=== PATIENT | female | born 1980 | race Caucasian/White ===

== ENCOUNTER 2024-04-19 16:52 | Day surgery (SDC) | payer OTHER, SELFPAY ==
[2024-04-19] VITALS (14 sets, daily range): BP systolic 89–116; BP diastolic 53–75; PULSE 89–114; RESP 16–18; TEMP 35.8–37.4; O2SAT 98–100; BMI 27.0
--- NOTE | 2024-04-19 17:06 | US_ITS ---
STUDY: FIRST TRIMESTER OBSTETRICAL ULTRASOUND REASON FOR EXAM: Female, 43 years old vag bleeding 1st trimester ?? miscarriage LMP: TECHNIQUE: Transvaginal TECHNICAL QUALITY: Adequate. PRIOR ULTRASOUND: None. FINDINGS: There is no evidence for intrauterine gestational sac The estimated gestation age (EGA) by LMP is 12 weeks, 0 days. The estimated date of delivery (MARCY) by LMP is November 01, 2024. The uterus measures 10.9 x 7.5 x 5.5. There is no demonstrated uterine fibroid. The cervix is closed. The endometrial lining is 2.4 cm in thickness heterogeneous appearance and vascular which may be consistent with retained products of conception. Normal right ovary is not visualized. There is no adnexal mass The left ovary measures 3.5 x 2.7 x 2 cm. There is a cyst measuring 2.3 x 1.8 x 1.67 years. There is no visualized left adnexal mass or complex lesion. There is no fluid in the cul de sac. US/Transvaginal w/Preg US IMPRESSION: Findings which may be consistent with incomplete and retained products of conception. Small left ovarian cyst possibly corpus luteum. No definitive evidence for ectopic Electronically Signed: Daniel Valiente MD at 18:34 EDT ,
--- NOTE | 2024-04-19 17:08 | EDS_ITS ---
HPI HPI - Female History of Present Illness Chief Complaint: Vag Bld, Preg Informant: patient and spouse/S.O. Pain Pain: Positive for Pelvic Pain Quality: Positive for Cramping Current Severity: Mild Maximum Severity: Mild Bleeding Issue: Positive for Vaginal bleeding and Passing clots Onset: Today and Yesterday Timing: Intermittent Current Severity: Similar to period Maximum Severity: Similar to period Associated Symptoms Associated Symptoms: Negative for Dysuria, Frequency or Urgency Test: Positive Sexually: Positive for Active Control: No control P: 8 Ab: 5 Narrative Narrative: 43-year-old female believes she has been 13 times with 8 live children and possibly 5 or so miscarriages. So G5 13 P8 AB 5. States she was most recently 12 weeks . Think she had a miscarriage yesterday. With bleeding clots and continued to have bleeding clots today. Since she typically with her other miscarriages she has not had significant bleeding like this. She denies any fever. No dysuria. She is on no medications. She has no past medical or surgical history. She has had no recent hospitalization. She has never seen either [facility] to come to this hospital or been evaluated by them in the past. She had no care for this . Prior similar symptoms: Yes Recent Illness/Hospitalization: No PFSH PFSH Medical History no medical history no medical history Home Medications ?Medication ?Instructions ?Recorded ?Last Taken ?Type NK 04/19/24 Unknown History Allergy/AdvReac Type Severity Reaction Status Date / Time No Known Allergies Allergy Verified 04/19/24 16:54 Social History Smoking Status: Never smoker ROS ROS ED ROS Narrative Denies recent illness. Constitutional Constitutional ED: Denies chills or fever(s) Eyes Eyes: Denies blurry vision ENT ENT ED: Denies ear pain Cardiovascular Cardiovascular: Denies chest pain Respiratory/Chest Respiratory/Chest: Denies cough Genitourinary Genitourinary ED: Denies dysuria Musculoskeletal Musculoskeletal: Denies arthralgias Integumentary Denies abscess Neurologic Neurologic: Denies headache(s) Psychiatric Psychiatric: Denies anxiety Endocrine Endocrinology: Denies heat intolerance Hematologic/Lymphatic Hematologic/Lymphatic: Denies lymphadenopathy Allergic/Immunologic Allergic/Immunologic ED: Denies mouth swelling, tongue swelling or urticaria EXAM Physical Exam Narrative Exam Narrative: Well-appearing 43-year-old female. Vital signs are stable afebrile. Patient sitting upright in bed. at bedside. H EENT exam unremarkable. Mytrex members. Neck nontender no lymphadenopathy. Lungs clear to auscultation bilaterally. Heart regular rhythm rate about 110 no murmur. Abdomen is soft, nondistended normal bowel sounds without peritoneal signs. She has minimal tenderness suprapubic over her uterus. No abdominal distention. Moving all 4 extremities. Nontender. No edema. She is awake and alert no focal motor deficits. Benign exam. Const Vital Signs: 04/19/24 16:54 Temperature 96.4 F L Temperature Source Temporal Pulse Rate 114 H Respiratory Rate 16 Blood Pressure 116/75 Blood Pressure Mean 88 Pulse Ox 100 Oxygen Delivery Method Room Air Positive well nourished and well developed; Negative for obese, cachectic, contractures or unkempt General Appearance ED: well developed and NAD; Negative for unkempt, cachectic, contractures or pallor Nutritional Appearance: Negative for cachectic or obese HEENT Reports moist mucous membranes Eyes PERRL and EOMs intact bilaterally Neck no lymphadenopathy, supple and no JVD Chest Wall inspection of chest normal and palpation of chest normal Resp normal respiratory effort and clear to auscultation bilaterally Effort and Inspection: Negative for pain with movement Auscultation: Negative for rales, rhonchi or wheezes Cardio regular rhythm, S1 normal heart sound, no murmurs and no JVD; Negative for regular rate Rate: tachycardic GI normal to inspection, nondistended, normoactive bowel sounds, soft to palpation, non-distended and no masses; Negative for non-tender GI Narrative: Minimal suprapubic uterine tenderness. Palpation: tender; Negative for guarding or mass Back/Spine no CVA tenderness General Back: Negative for CVA tenderness Cervical Spine: Negative for cervical spine tenderness Thoracic Spine / Upper Back: Negative for thoracic spinal tenderness Lumbar Spine / Lower Back: Negative for lumbar spinal tenderness Sacrum: Negative for other Extremity normal to inspection and full ROM General Extremety ED: Negative for edema or tenderness General Extremity: Negative for edema Neuro CN's II-XII intact bilaterally Sensorium / Orientation: alert, oriented to person, oriented to place and oriented to time; Negative for confused, lethargic or stuporous Motor Exam: strength 5/5 throughout Psych mental status grossly normal Appearance: Negative for unkempt Mood & Affect: Negative for depressed, anxious or tearful Skin no rashes or lesions noted and no wounds General Skin Exam: Negative for jaundice or pallor Rashes: No rashes noted Trauma: Negative for other MDM MDM MDM Narrative Medical decision making narrative: 43-year-old female who has been at least 13 times with 8 children and 5 or more miscarriages. No care. Think she had a miscarriage yesterday at 12 weeks. She is never been seen here or by either local [facility]. Screening labs, pelvic exam and ultrasound to be obtained. She believes her blood type is +. Repeat exam at 6:40 PM. Patient returned from the ultrasound. She is having heavy vaginal bleeding. When I was doing a speculum exam with the nurse present in the room she had a very large clot and significant amount of vaginal bleeding. She is currently being giving a liter of fluid because her blood pressures around 100 systolic. A second IV will be started. I have OB on-call on page. I spoke to Dr. Braron Harris at 6:45 PM. He will be in evaluate the patient. At this time we are thinking that she will need to go to the OR for a D&C. Lab Data Attestation: I reviewed the patient's lab results. Lab results narrative: CBC normal. White count of 10. H&H 12.5 and 36.7. Platelets 252. No old labs available for comparison. Electrolytes showed potassium 3.4. Gap 8. Normal BUN and creatinine. Glucose 146. hCG quant was 1281. Blood type was B+. Pelvic ultrasound consistent with retained products of conception incomplete . Labs: Laboratory Results - last 24 hr 04/19/24 17:19 WBC 10.6 RBC 4.26 Hgb 12.5 Hct 36.7 L MCV 86.2 MCH 29.3 MCHC 34.1 RDW Std Deviation 40.3 RDW Coeff of Danni 13.0 Plt Count 152 MPV 8.7 Immature Gran % (Auto) 0.500 Neut % (Auto) 69.8 Lymph % (Auto) 23.8 Lagrange % (Auto) 4.6 Eos % (Auto) 0.9 Baso % (Auto) 0.4 Absolute Neuts (auto) 7.4 Absolute Lymphs (auto) 2.51 Nucleated RBC % 0 Sodium 138 Potassium 3.4 L Chloride 106 Carbon Dioxide 24.0 Anion Gap 8 BUN 9 Creatinine 0.71 Estim Creat Clear Calc 112.64 Est GFR (MDRD) Af Amer 115 Est GFR (MDRD) Non-Af 95 BUN/Creatinine Ratio 12.7 Glucose 146 H Calcium 8.7 HCG, Quant 1281 H Blood Type B POSITIVE Radiography Diagnostic Testing: Clinical Impression(s) from Imaging Studies Obstetrics Ultrasound 04/19/24 17:06 IMPRESSION: Findings which may be consistent with incomplete and retained products of conception. Small left ovarian cyst possibly corpus luteum. No definitive evidence for ectopic Electronically Signed: Daniel Valiente MD at 18:34 EDT , Critical Care Time Critical Care Time: Yes Critical care time (excluding procedures): 30-74 minutes, Including time spent:, Discussing w/Patient &/or Family/Manager Medical Device, Discussing w/Consultants, Arranging Admission or Transfer, Performing Direct Patient Care at Bedside and - (35 minutes) Discharge Plan Triage Chief Complaint: Vag Bld, Preg ED Provider: Eliseo Alarcon Dx/Rx/DC Orders Clinical Impression: Incomplete miscarriage, Retained products of conception, Vaginal bleeding Primary Care Provider: Crow Menendez Referrals: Crow Menendez DO [Primary Care Provider] - Print Language: [place] Disposition Disposition: Acute Care Hospital [facility]
[2024-04-19 17:43] LABS: Absolute Lymphocyte Count 2.51 X10^3/uL (0.83-4.51); Absolute Neutrophil Count 7.4 X10^3/uL (2.0-7.7); Basophil# 0.04 X10^3/uL; Basophil% 0.4 % (0-1); Eosinophils% 0.9 % (0-5); Hematocrit 36.7 % (37-47); Hemoglobin 12.5 g/dL (12.0-15.0); Lymphocyte # 2.51 X10^3/ul (0.83-4.51); Lymphocyte % 23.8 % (19-41); Mean Corp Hgb Conc 34.1 g/dL (32-36); Mean Corpuscular Hgb 29.3 pg (27.0-32.0); Mean Corpuscular Volume 86.2 fL (81-99); Mean Platelet Vol. 8.7 fl (6.2-12.0); Monocyte# 0.49 X10^3/uL; Monocyte% 4.6 % (0-10); NRBC Flagged by Analyzer 0 % (0-5); Neutrophil # 7.37 X10^3/uL (2.7-7.7); Neutrophil % 69.8 % (47-70); Platelet Count 152 K/mm3 (150-450); RBC Distribution Width SD 40.3 fl (35.1-43.9); Red Blood Count 4.26 M/mm3 (4.2-5.4); White Blood Count 10.6 K/mm3 (4.4-11.0)
[2024-04-19 17:50] LABS: Anion Gap 8 (5-15); BUN 9 mg/dL (7-18); BUN/Creat Ratio 12.7 RATIO (10-20); Calcium,Total 8.7 mg/dL (8.5-10.1); Chloride 106 mmol/L (98-107); Creatinine, Serum 0.71 mg/dL (0.55-1.02); EST Glomerular Filtration Rate 95 mL/min (>60); Est Glom Filt Rate - Afr Amer 115 mL/min (>60); Estimated Creatinine Clearance 112.64 ml/min; Glucose 146 mg/dL (74-106); Potassium 3.4 mmol/L (3.5-5.1); Sodium Level 138 mmol/L (136-145)
[2024-04-19 18:07] LABS: hCG Titer Quant., Serum 1281 mIU/mL (1-3)
[2024-04-19] MEDS: 0.9% Normal Saline (1000mL) 1,000 ML 999 ML IV (18:43)
--- NOTE | 2024-04-19 20:15 | POC_PTH ---
PATIENT: SASKIA TORRES [place] [facility] [id number] AGE/SX: 43/F ROOM: RE04/19/[address]: Dr. Barron Harris MD : 1980 BED: DIS: 04/19/2024 SPEC #: [id number] RECD: 04/20/24 07:45 STATUS: FAUSTO EDWARDS #: [id number] LESLIE: 04/19/24 20:[address]: Barron Harris DEPT: SURGICAL PATHOLOGY RECD BY: Angel Downey ENTERED: 04/20/24 09:32 SP TYPE: PROD CONC OTHR DR: Dr. Crow Menendez DO Tissues: Product of conception, NOS Procedures: Surgery Specimen Level IV HEADER OPERATION: Dilation and curettage, suction PRE-OP DIAGNOSIS: Incomplete TISSUE SUBMITTED: Products of conception MICROSCOPIC DIAGNOSIS Endometrium, curettage: Chorionic villi, decidualized stroma and trophoblastic cells (products of conception). AM: 04/21/2024 MICROSCOPIC DESCRIPTION Slides are reviewed. GROSS DESCRIPTION Received in fixative is one container labeled with the patient's name and designated Products of conception. The specimen consists of a fragment of placental tissue mixed with hemorrhagic soft tissue and blood clot measuring in aggregate 11.0 x 8.0 x 2.5cm. tissue is not identified. Medical Billing Supervisor tissue is submitted in three cassettes. 04/20/2024 TC:5 CPT:12808
--- NOTE | 2024-04-19 20:44 | ED.RN ---
before going to OR, called for LR from pharmacy, received, started. pt had BM on bedpan and large amount of clots. report was called to OR.
--- NOTE | 2024-04-19 20:54 | OP.PCM_ITS ---
Report of Operation Date of Procedure: 04/19/24 Pre-Operative Diagnosis: Missed AB, Hemorrhage Post-Operative Diagnosis: Missed AB, Hemorrhage Surgery/Procedure Performed:: Suction Dilation and Evacuation under Ultrasound Guidance Description of Surgical Findings:: 8 cm uterus with copious amounts of products of conception present. Heavy vaginal bleeding before the procedure. Minimal bleeding after the procedure Surgeon: Barron Harris Type of Anesthesia: MAC Anesthesiologist: Sacha Somers Specimen's removed: Products of Conception Estimated Blood Loss (mL): 100 cc Fluids Replaced: Crystalloid Description of Procedure: Surgeon: Barron Harris MD, FACOG Findings: 8 cm endometrial cavity with products of conception visualized on ultrasound prior to the procedure. Indications: This is a 43year old patient 13 para 8 AB 4 at about 6 to 12 weeks gestation who presented to the emergency room with heavy vaginal bleeding and the above diagnosis. Given her extremely heavy bleeding it was decided to proceed with emergency D&E. The patient and her have been counseled regarding the risk and indications of this procedure including the possibility of bleeding, infection, and injury to surrounding structures such as bowel bladder. All questions were answered and we consider the patient well- informed. Procedure: The patient was taken to the operating room where after MAC local was given, she was placed in the dorsolithotomy position and prepped and draped in the usual sterile fashion. Ultrasound visualized copious amounts of products of conception in the uterus. Anterior cervix was grasped with the ring forcep and dilated to about 8-9 mm. Ring forcep was used to grasp some products of conception from the cervical os and then a 9 mm suction curette was placed and remaining tissue was removed; uterus was gently curetted removing remaining final contents. Suction curette was again placed and all tissue was noted to be evacuated. This was confirmed with ultrasound. Patient tolerated procedure well was taken to recovery room in satisfactory condition sponge instrument and needle counts were all reportedly correct. Estimated blood loss for the case was 100 cc. Specimens to pathology was products of conception. Complications: None Grafts/Implants Used: None Complications None Admit VTE Documentation VTE Present on Admission: Yes VTE Mechan Device Prophylaxis: SCD's
--- NOTE | 2024-04-19 20:59 | PCM.PRE.AN2 ---
ASA Classification* ASA Classification ASA Classification: 2 and E Assessment & Plan Anesthesia* Anesthesia Assessment Anesthesia Assessment: Discussed sedation and/or anesthesia options, risks, benefits, and alternatives with patient/parents/legal guardian/POA. Questions invited. The patient/parents/legal guardian/POA seems to understand and agrees to proceed with anesthesia plan. Reviewed the physical assessment, medical history, allergy history and patient home medications list prior to surgery/procedure/anesthetic and documented any changes. Performed airway and anesthesia risk assessments. Anesthesia Type Anesthesia Type: MAC (MAC ) Anesthesia Focused Assessment* Temperature: 97.9 F Pulse Rate: 107 Blood Pressure: 105/53 Respiratory Rate: 18 Pulse Ox: 100 Airway Assessment Mouth opens: >3 cm Mallampati Score: II Neck Range of motion (ROM): Full ROM Focused Labs Anesthesia Preop lab: CBC WBC 10.6 K/mm3 (4.4-11.0) 04/19/24 17:19 RBC 4.26 M/mm3 (4.2-5.4) 04/19/24 17:19 Hgb 12.5 g/dL (12.0-15.0) 04/19/24 17:19 Hct 36.7 % (37-47) L 04/19/24 17:19 Plt Count 152 K/mm3 (150-450) 04/19/24 17:19 CHEMISTRY Potassium 3.4 mmol/L (3.5-5.1) L 04/19/24 17:19 Sodium 138 mmol/L (136-145) 04/19/24 17:19 BUN 9 mg/dL (7-18) 04/19/24 17:19 Creatinine 0.71 mg/dL (0.55-1.02) 04/19/24 17:19 Glucose 146 mg/dL (74-106) H 04/19/24 17:19 COAG HCG, Quant 1281 mIU/mL (1-3) H 04/19/24 17:19 Pre-Assessment Diagnosis/Proposed Procedure Planned Operative Procedure(s): suction D and c Anesthesia History Anesthesia History - rubber tubing backer: Anesthesia History - rubber tubing backer Hx Hospitalization Any Problems With Anesthesia No 04/19/24 19:25 Cholinesterase deficiency No 04/19/24 19:25 You/Your Family Experience No 04/19/24 19:25 fever (hyperthermia) with Relationship Recent Exposure to Contagious No 04/19/24 19:25 Disease Does patient have nerve No 04/19/24 19:25 stimulator Patient instructed to have No 04/19/24 19:25 device shut off --Does patient have Pacemaker No 04/19/24 19:25 or ICD? When Was Last Pacemaker Check QUESTION #4 FULL TEXT: You/Your Family Experience fever (hyperthermia) with Anesthesia Last Oral Intake Last Oral intake: Last Oral Intake NPO since 15:00 04/19/24 19:25 Meds taken in AM with sips of No 04/19/24 19:25 water? Meds patient instructed to take am of surgery PONV PONV - rubber tubing backer: PONV - rubber tubing backer Female HX of Motion Sickness HX of N/V After Surgery Non-Smoker Duration of Surgery greater than 60 minutes Number of Risk Factors PONV Score Height & Weight Height & Weight: Anesthesia: Height & Weight Height 5 ft 8 in 04/19/24 19:25 Weight: 80.558 kg 04/19/24 19:25 Body Mass Index (BMI) 27.0 04/19/24 19:25 Respiratory Assessment Respiratory Assessment - rubber tubing backer: Respiratory Tract Infection Hx - rubber tubing backer Hx Respiratory Tract Infection No 04/19/24 19:25 STOP Sleep Apnea STOP Sleep Apnea - rubber tubing backer: STOP Sleep Apnea - rubber tubing backer Hx Hypertension No 04/19/24 19:25 Hx Sleep Apnea No 04/19/24 19:25 CPAP BIPAP Do you snore loudly (louder Yes 04/19/24 19:25 than talking or can be heard Do you often feel tired/ Yes 04/19/24 19:25 fatigued/ sleepy during daytime? Has anyone observed you stop No 04/19/24 19:25 breathing during sleep? STOP Results Positive 04/19/24 19:25 QUESTION #5 FULL TEXT : Do you snore loudly (louder than talking or can be heard through closed doors)? Tobacco Use History Tobacco Use History - rubber tubing backer: Tobacco Use History - rubber tubing backer Tobacco Use Smoking Status Never smoker 04/19/24 17:27 Hx Tobacco Use Years Smoking Packs Smoked per Day Smoking Cessation Date was within the last 15 years Hx Smoking Cessation Date Hx Smoking Cessation Counseling Hematologic Medial History Hematologic Hx - rubber tubing backer: Hematologic Medical Hx - glove presser Hx of Blood Transfusion Hx of Transfusion in last 3 Months Date of Last Transfusion (if within last 3 months) Ever experience any problems with transfusion(s)? Specify any problems Hx of Preganancy in last 3 Months Nurse Filling Out Transfusion & Questions: Date: Time: Patient unable to answer at this time (ie. confused, unrespo /Reproduction History /Reproductive History - rubber tubing backer: /Reproductive Hx- rubber tubing backer Hx Now Yes: miscarrying 04/19/24 19:25 Gestational Age (in weeks): EDC: Hx Hx Para Hx Section SAB Yes 04/19/24 19:25 PFSH Medical History no medical history Home Medications ?Medication ?Instructions ?Recorded ?Last Taken ?Type NK 04/19/24 Unknown History Allergy/AdvReac Type Severity Reaction Status Date / Time No Known Allergies Allergy Verified 04/19/24 16:54 Social History Smoking Status: Never smoker Review of Systems (Anesthesia) ROS Narrative System reviewed and no additional complaints, except as documented.
--- NOTE | 2024-04-19 21:05 | PCM.DC ---
Discharge Instructions Diet Discharge Diet: No restrictions Activity Discharge Activity: Return to Normal Activity, May Shower and May Take a Tub Bath May resume sexual activity in: 1-2 weeks Dressing / Incision Call your doctor if your incision/area has: Foul Smelling Discharge Call your doctor if you observe: Fever of 101 or Higher, Inability to urinate, Inability to have a bowel movement and Using more than 1 pad per hour Follow Up Care Please Follow Up With: Kasandra Fenton DO When: 1 to 2 weeks Test Results: Test results from this visit will be discussed in further detail at your follow-up appointment, if applicable. Discharge Plan Admission Attending Provider: Barron Harris Primary Care Provider: Crow Menendez Instructions Additional Instructions / Restrictions: Use Tylenol or Motrin for cramping at home. Use iron sulfate 325 mg daily for 3 to 6 weeks to help build blood counts from blood loss from the miscarriage. Print Language: Panamanian Discharge Orders/Prescriptions Prescriptions: No Action NK Referrals / Follow Up: Crow Menendez DO [Primary Care Provider] - Disposition Disposition (needs filled in before D/C Order can be placed): Home, Self Care
--- NOTE | 2024-04-19 21:16 | PCM.POST.ANE ---
Anesthesia: Postop Eval I Current Vital Signs Temperature: 97.7 F Pulse Rate: 97 Blood Pressure: 114/54 Respiratory Rate: 17 Pulse Ox: 99 Assessment Airway patent: Yes Spontaneous unlabored respirations: Yes nausea: No Vomiting: No Anesthesia Complication: No Fluid Hydration Crystalloid volume administer (ml): 350 Total IV fluid infused: 350 Progress Note Anesthesia document: Postop Eval 1 completed: Yes
--- NOTE | 2024-04-19 21:17 | POSTOPAN2_ITS ---
Anesthesia Postop Eval I Sum Postop Eval Completion status Anesthesia document: Postop Eval 1 completed: Yes Anesthesia Postop Eval I Summary Anesthesia Postop Eval I Summary: Anesthesia Postop Eval I: Assessment Summary Airway patent Yes 04/19/24 21:16 LUMBER [email or web address] Spontaneous unlabored Yes 04/19/24 21:16 LUMBER [email or web address] respirations Mental status nausea No 04/19/24 21:16 LUMBER [email or web address] Vomiting No 04/19/24 21:16 LUMBER [email or web address] Anesthesia Postop Eval I: Fluid Summary Crystalloid volume administer 350 04/19/24 21:16 LUMBER [email or web address].JCOTE (ml) Colloids volume administered ( ml) Blood Product volume administered (ml) Total IV fluid infused 350 04/19/24 21:16 LUMBER [email or web address].[email or web address] Anesthesia Postop Eval I: Summary Notes Anesthesia Complication No 04/19/24 21:16 LUMBER [email or web address].[email or web address] Anesthesia Complication Comment: Post-operative progress note Anesthesia: Postop Eval II Evaluation Mental status: Awake Pain Level: 0 nausea: No Vomiting: No
--- NOTE | 2024-04-19 21:17 | PCM.POSTANE2 ---
Anesthesia Postop Eval I Sum Postop Eval Completion status Anesthesia document: Postop Eval 1 completed: Yes Anesthesia Postop Eval I Summary Anesthesia Postop Eval I Summary: Anesthesia Postop Eval I: Assessment Summary Airway patent Yes 04/19/24 21:16 SCENE AND LIGHTING DESIGN LECTURER.[email or web address] Spontaneous unlabored Yes 04/19/24 21:16 SCENE AND LIGHTING DESIGN LECTURER.[email or web address] respirations Mental status nausea No 04/19/24 21:16 SCENE AND LIGHTING DESIGN LECTURER.JCOTE Vomiting No 04/19/24 21:16 SCENE AND LIGHTING DESIGN LECTURER.JCOTE Anesthesia Postop Eval I: Fluid Summary Crystalloid volume administer 350 04/19/24 21:16 SCENE AND LIGHTING DESIGN LECTURER.JCOTE (ml) Colloids volume administered ( ml) Blood Product volume administered (ml) Total IV fluid infused 350 04/19/24 21:16 SCENE AND LIGHTING DESIGN LECTURER.JCOTE Anesthesia Postop Eval I: Summary Notes Anesthesia Complication No 04/19/24 21:16 SCENE AND LIGHTING DESIGN LECTURER.JCOTE Anesthesia Complication Comment: Post-operative progress note Anesthesia: Postop Eval II Evaluation Mental status: Awake Pain Level: 0 nausea: No Vomiting: No
[2024-04-19] MEDS: Lactated Ringers 1,000 ML 15 ML IV (22:37)
== END 2024-04-19 22:46 | disposition home or self-care (01) ==
LOC: ED 18:47 → SDC 18:57 → AC 18:58
PROVIDERS: Emergency Provider Emergency Medicine; PCP Family Medicine; Visit Provider Obstetrics & Gynecology
PROC: (CPT 59820; principal; 2024-04-19 20:00)
DX: O02.1 Missed abortion (principal)
CPT/HCPCS: 59820; 76817; 80048; 84702; 85025; 86900; 86901; 88305; 99284; J7040; A4216; J2405